=== PATIENT | female | born 1950 | race Caucasian/White ===

== ENCOUNTER 2017-02-07 05:35 | Inpatient (IN) | payer OTHER ==
[~2017-02-07] VITALS: Ht 149.9 cm; Wt 110.0 kg
[~2017-02-07 05:35] MED LIST: ACTOS15 MG PO; ALPRAZOLAM ER1 MG PO; ALPRAZOLAM ER2 MG PO; ALPRAZOLAM1 MG PO; ASCORBIC ACID500 M3 PO; ASPIRIN E.C.81 M1 PO; BABY ASPIRIN81 M1 PO; CHEWABLE-VITE1 EACH PO; CLONAZEPAM0.5 MG PO; CYMBALTA30 MG PO; CYMBALTA60 MG PO; ENALAPRIL MALEAT5 M1 PO; ENALAPRIL MALEAT5 MG PO; FEOSOL325 MG PO; GEODON; GEODON20 MG PO; GEODON40 MG PO; GEODON60 MG PO; GEODON80 MG PO; HYDROCODON-ACE1 EA11 PO; JANUMET 50/51 TABLET PO; JANUVIA; JANUVIA25 M1 PO; Januvia PO; KRILL OIL500 MG PO; LATUDA80 MG PO; LEVO-T112 MCG PO; LEVOTHYROXINE125 MCG PO; LOW DOSE ASPIRI81 M1 PO; MELATONIN5 M1 PO; MOTRIN800 MG PO; OMEPRAZOLE40 M1 PO; OXYBUTYNIN CHLO10 MG PO; PREVACID30 MG PO; PROTONIX40 MG PO; RISPERDAL0.25 M1 PO; RISPERDAL0.5 MG PO; RISPERDAL1 MG PO; SIMVASTATIN40 MG PO; SUPER B MAXI C0.4 MG PO; TOPAMAX100 MG PO; TOPIRAMATE100 MG PO; VESICARE10 MG PO; VITAMIN D2000 UNIT PO; WELLBUTRIN XL150 MG PO; WELLBUTRIN XL300 MG PO; XANAX1 MG PO; [UNRECOGNIZED DRUG - OTHER] PO
[2017-02-07 06:33] VITALS: BP 132/58
[2017-02-07 07:27] LABS: POINT-OF-CARE METER ID UU14174212
[2017-02-07 09:55] LABS: POINT-OF-CARE METER ID UU13113675; POINT-OF-CARE USER ID 515036437
[2017-02-07 11:13] VITALS: BP 122/58
[2017-02-07 12:18] LABS: POINT-OF-CARE METER ID UU13113712
[2017-02-07 13:34] VITALS: BP 130/56
[2017-02-07 15:51] VITALS: BP 134/60
[2017-02-07 16:18] LABS: POINT-OF-CARE METER ID UU13113712
[2017-02-07 17:30] VITALS: BP 140/63
[2017-02-07 19:58] VITALS: BP 151/72
[2017-02-07 22:01] LABS: POINT-OF-CARE METER ID UU13113712
[2017-02-08 00:30] VITALS: BP 149/65
[2017-02-08 03:40] VITALS: BP 143/63
[2017-02-08 06:48] LABS: HEMATOCRIT 35.4 % (36.0-46.0); MCV 88.1 FL (83-99)
[2017-02-08 07:15] LABS: ANION GAP 8 MEQ/L (2-14); CHLORIDE 101 MEQ/L (99-109); GFR ESTIMATE (CALCULATED) > 59 mL/min/; GLUCOSE 199 mg/dL (70-99); POTASSIUM 4.3 MEQ/L (3.7-5.4); SAMPLE HEMOLYSIS CHECK 0; SAMPLE ICTERIC CHECK 0; SAMPLE LIPEMIA CHECK 0; SODIUM 134 MEQ/L (136-147); UREA NITROGEN (BUN) 18 mg/dL (9-23)
[2017-02-08 08:31] VITALS: BP 144/71
[2017-02-08 11:22] LABS: POINT-OF-CARE METER ID UU13113712
[2017-02-08 12:09] VITALS: BP 168/78
[2017-02-08 15:43] VITALS: BP 132/58
[2017-02-08 16:24] LABS: POINT-OF-CARE METER ID UU13113712
[2017-02-08 19:49] VITALS: BP 171/80
[2017-02-08 21:59] LABS: POINT-OF-CARE METER ID UU13113712
[2017-02-09] VITALS (7 sets, daily range): BP systolic 134–159; BP diastolic 63–78
[2017-02-09 05:29] LABS: HEMATOCRIT 33.9 % (36.0-46.0); MCV 86.3 FL (83-99)
[2017-02-09 07:28] LABS: POINT-OF-CARE METER ID UU13113712
[2017-02-09 11:44] LABS: POINT-OF-CARE METER ID UU13113712
[2017-02-09 16:31] LABS: POINT-OF-CARE METER ID UU13113712
[2017-02-10] MEDS ORDERED: CELECOXIB200 MG PO (07:52)
[2017-02-10] MEDS ORDERED: XARELTO10 MG PO (07:52)
[2017-02-10] MEDS ORDERED: OXYCODONE HCL5 MG PO (07:52)
[2017-02-10 08:07] VITALS: BP 132/77
[2017-02-10 11:35] VITALS: BP 156/73
[2017-02-10 12:08] LABS: POINT-OF-CARE METER ID UU14149397
== END 2017-02-10 13:21 | DRG 470 ==
LOC: 3WEST 05:35 → 2SOUTH 05:35 → 3WEST 10:40 → 2SOUTH 11:17 → 3WEST 02-09 09:25 → 3EAST 02-09 17:59
PROVIDERS: Orthopaedic Surgery
PROC: 0SRD0J9 Replacement of Left Knee Joint with Synthetic Substitute, Cemented, Open Approach (ICD-10-PCS; principal; 2017-02-07)
DX: M17.12 Unilateral primary osteoarthritis, left knee (principal); I10 Essential (primary) hypertension; E11.9 Type 2 diabetes mellitus without complications; K21.9 Gastro-esophageal reflux disease without esophagitis; E03.9 Hypothyroidism, unspecified; F32.9 Major depressive disorder, single episode, unspecified; E66.9 Obesity, unspecified; Z68.42 Body mass index [BMI] 45.0-49.9, adult
CPT/HCPCS: 71010; 80048; 82948; 85014; 85018; 97530 GP; C1713; J0131; J0690; J1815; J1885; J2250; J2405; J2795; J3010; J7030; J7050; J7120; L1820; S0020

== ENCOUNTER 2018-02-17 14:02 | Emergency (ER) | payer OTHER ==
[~2018-02-17 14:02] MED LIST changes: +CELECOXIB200 MG PO; +OXYCODONE HCL5 MG PO; +XARELTO10 MG PO
[2018-02-17 14:15] LABS: BASOPHIL (%) 0.8 % (0-1); BASOPHIL COUNT 0.1 K/uL (0-0.1); EOSINOPHIL (%) 5.1 % (0-5); EOSINOPHIL COUNT 0.5 K/uL (0-0.3); HEMOGLOBIN 11.8 G/DL (11.9-15.5); IMMATURE GRANULOCYTE (%) 0.5 % (0.0-0.7); LYMPHOCYTE (%) 12.3 % (15-42); LYMPHOCYTE COUNT 1.2 K/uL (1.0-2.8); MCH 25.5 PG (29.0-34.0); MCHC 31.9 G/DL (30.0-36.0); MCV 80.1 FL (83-99); MONOCYTE (%) 6.9 % (3-12); MONOCYTE COUNT 0.7 K/uL (0-0.8); NEUTROPHIL (%) 74.4 % (45-76); NEUTROPHIL COUNT 7.4 K/uL (1.8-6.4); PLATELET COUNT 340 K/uL (156-360); RBC DIS.WIDTH-SD 45.9 % (39-53); RED BLOOD COUNT 4.62 M/uL (3.80-5.20); WHITE BLOOD COUNT 9.9 K/uL (4.1-10.2)
[2018-02-17 14:23] LABS: AMYLASE 44 IU/L (1-118); CHLORIDE 101 mEq/L (99-109); POTASSIUM 4.5 mEq/L (3.7-5.4); SODIUM 134 mEq/L (136-147)
[2018-02-17 14:25] LABS: GLUCOSE 206 mg/dL (70-99)
[2018-02-17 14:28] LABS: SERUM ETHYL ALCOHOL < 10 mg/dL
[2018-02-17 14:29] LABS: CREATININE 1.3 mg/dL (0.6-1.3); GFR ESTIMATE (CALCULATED) 44 mL/min/; UREA NITROGEN (BUN) 19 mg/dL (9-23)
[2018-02-17 14:32] LABS: LIPASE 42 U/L (1.0-51.0)
[2018-02-17 15:29] LABS: APPEARANCE SL.HAZY ((CLEAR)); BILIRUBIN NEGATIVE; BLOOD NEGATIVE; GLUCOSE (STRIP) >=500; KETONES NEGATIVE; LEUKOCYTES NEGATIVE; NITRITE NEGATIVE; PROTEIN (STRIP) NEGATIVE; SPECIFIC GRAVITY 1.017 (1.000-1.030); UROBILINOGEN 0.2 MG/DL (0.2-1.0)
[2018-02-17 15:37] LABS: BACTERIA NONE SEEN /HPF; COLOR LT YELLOW ((YELLOW)); EPITHELIAL CELLS RARE /HPF; MUCUS NONE SEEN /LPF; RED BLOOD CELLS 0-5 /HPF (0-5); UCUL ADDED? NO; WHITE BLOOD CELLS 0-5 /HPF (0-5)
[2018-02-17 15:38] LABS: AMPHETAMINE NEGATIVE (500 ng/mL); BARBITURATES NEGATIVE (200 ng/mL); BENZODIAZEPINES PRESUMPTIVE POSITIVE (150 ng/mL); BUPRENORPHINE NEGATIVE (10 ng/mL); COCAINE NEGATIVE (150 ng/mL); METHADONE NEGATIVE (200 ng/mL); METHAMPHETAMINE NEGATIVE (500 ng/mL); OPIATES (MORPHINE) NEGATIVE (100 ng/mL); OXYCODONE NEGATIVE (100 ng/mL); PHENCYCLIDINE NEGATIVE (25 ng/mL); PROPOXYPHENE NEGATIVE (300 ng/mL); THC CANNABINOIDS NEGATIVE (50 ng/mL); TRICYCLIC ANTIDEPRESSANTS NEGATIVE (300 ng/mL)
[2018-02-17 16:05] LABS: BENZODIAZEPINES, URINE SCREEN POSITIVE (200 ng/mL)
== END 2018-02-17 15:51 | disposition home or self-care (01) ==
LOC: TRA 14:02
PROVIDERS: Emergency Medicine Emergency Medical Services
DX: S39.012A Strain of muscle, fascia and tendon of lower back, initial encounter (principal); S20.219A Contusion of unspecified front wall of thorax, initial encounter; R11.0 Nausea; V49.40XA Driver injured in collision with unspecified motor vehicles in traffic accident, initial encounter; Y92.410 Unspecified street and highway as the place of occurrence of the external cause; I10 Essential (primary) hypertension; E78.5 Hyperlipidemia, unspecified; E11.9 Type 2 diabetes mellitus without complications; Z79.84 Long term (current) use of oral hypoglycemic drugs; Z79.82 Long term (current) use of aspirin
CPT/HCPCS: 70450; 71260; 72125; 72129; 72132; 74177; 80048; 81003; 82150; 83690; 84999; 85025; 86850; 86900; 86901; 99281; 99284; G0480